=== PATIENT | male | born 1995 | race Two or more races ===

== ENCOUNTER 2019-09-22 23:43 | Emergency (ER) | payer SELFPAY ==
[~2019-09-22] VITALS: Ht 177.8 cm; Wt 82.0 kg
[2019-09-23] MEDS ORDERED: QUETIAPINE FUMARATE 50MG TABLET PO SCH (00:30)
[2019-09-23 00:41] LABS: CHLORIDE 107 mEq/L (98-107)
[2019-09-23 00:46] LABS: ETHANOL BLOOD < 10 mg/dL
[2019-09-23 01:34] LABS: HEMATOCRIT. 34.5 % (42.0-52.0); HEMOGLOBIN. 12.2 g/dL (14.0-18.0); MEAN CORPUSCULAR HEMOGLOBIN 32.3 pg (28.0-32.0); MEAN CORPUSCULAR VOLUME 91.1 fL (80.0-94.0); MEAN PLATELET VOLUME 7.7 fl (7.4-10.4); RED CELL DISTRIBUTION WIDTH 13.2 % (11.6-14.6)
[2019-09-23 01:36] LABS: PLATELET 240 x1000/uL (130-400); RED BLOOD CELL COUNT 4.19 mill/uL (4.7-6.1)
[2019-09-23 01:39] LABS: PLATELET ESTIMATE NORMAL
[2019-09-23 04:04] LABS: CANNABINOID URINE SCREEN NEGATIVE (NEGATIVE); METHADONE URINE SCREEN NEGATIVE (NEGATIVE); OPIATES URINE SCREEN NEGATIVE (NEGATIVE); PHENCYCLIDINE URINE SCREEN NEGATIVE (NEGATIVE)
[2019-09-23 04:05] LABS: *AMPHETAMINES SCREEN URINE PRESUMTIVE POSITIVE (NEGATIVE); *BARBITURATES SCREEN URINE NEGATIVE (NEGATIVE); *BENZODIAZEPINES SCREEN URINE PRESUMTIVE POSITIVE (NEGATIVE); *COCAINE SCREEN URINE PRESUMTIVE POSITIVE (NEGATIVE)
[2019-09-23 04:19] LABS: CLARITY URINE CLEAR (CLEAR); COLOR URINE YELLOW (YELLOW); KETONES URINE TRACE (NEGATIVE); LEUKOCYTE ESTERASE URINE NEGATIVE (NEGATIVE); NITRITE URINE NEGATIVE (NEGATIVE); OCCULT BLOOD URINE NEGATIVE (NEGATIVE); PH URINE 5.5 (4.5-8.0); PROTEIN URINE NEGATIVE (NEGATIVE); SPECIFIC GRAVITY URINE 1.034 (1.005-1.030)
[2019-09-23 10:15] VITALS: BP 106/62
== END 2019-09-23 10:30 | disposition home or self-care (01) ==
LOC: ER 23:43
DX: R45.851 Suicidal ideations (principal); F20.9 Schizophrenia, unspecified; Z59.0 Homelessness
CPT/HCPCS: 36415; 80053; 80305; 80307; 80320; 80329; 81003; 85025; 99285; Z7610; G0480